=== PATIENT | female | born 1945 | race Caucasian/White ===

== ENCOUNTER 2020-04-30 14:43 | Inpatient (IN) | payer MEDICARE ==
[2020-04-30] MEDS ORDERED: Prochlorperazine Maleate 10 MG TAB PO PRN (17:50)
[2020-04-30] MEDS ORDERED: Diphenoxylate HCl/Atropine Tablet PO PRN (17:50)
[2020-04-30] MEDS ORDERED: traMADol HCl 50 MG TAB PO PRN ×2 (17:50)
[2020-04-30] MEDS: Ciprofloxacin 500 MG TAB PO SCH (20:45)
[2020-04-30] MEDS: Acetaminophen 500 MG TAB PO SCH (20:45)
[2020-04-30] MEDS: Ascorbic Acid 500 mg Chewable Tablet PO SCH (20:45)
[2020-04-30] MEDS: Loratadine 10 MG TAB PO SCH (20:46)
[2020-05-01] MEDS: Acetaminophen 500 MG TAB PO SCH ×5 (01:00→23:31)
[2020-05-01] MEDS: Ciprofloxacin 500 MG TAB PO SCH ×2 (05:47→19:21)
[2020-05-01 06:00] LABS: ALT (SGPT) 21 U/L (8-55); AST (SGOT) 26 U/L (5-34); Albumin 3.1 g/dL (3.4-4.8); Alkaline Phosphatase 97 U/L (40-110); Anion Gap 12 mmol/L (10-20); BUN (Urea Nitrogen) 14 mg/dL (9.8-20.1); Bilirubin, Total 0.8 mg/dL (0.2-1.2); Calc. Creatinine Clearance 69 mL/min (70-130); Calcium 8.4 mg/dL (7.8-10.44); Carbon Dioxide 24 mmol/L (23-31); Chloride 108 mmol/L (98-107); Estimated GFR-MDRD 68; Globulin 2.3 g/dL (2.4-3.5); Glucose 112 mg/dL (83-110); Potassium 3.9 mmol/L (3.5-5.1); Protein, Total 5.4 g/dL (6.0-8.3); Sodium 140 mmol/L (136-145)
[2020-05-01 06:36] LABS: Anisocytosis MODERATE=16-30 cells (100X) (0-5/hpf); Band 2 % (5-11); Basophilic Stippling SLIGHT = 1-2 cells (100X) (None Seen); Hemoglobin 8.6 g/dL (12.0-16.0); Lymphocytes 22 % (21-51); MDiff Complete? YES; Mean Corpuscular HGB CONC 30.2 g/dL (32.0-36.0); Mean Corpuscular Hemoglobin 29.8 pg (27.0-31.0); Mean Corpuscular Volume 98.6 fL (78.0-98.0); Mean Platelet Volume 8.4 fL (7.4-10.4); Metamyelocyte 1 % (0-0); Monocytes 26 % (0-10); Myelocyte 1 % (0-0); Neutrophil 48 % (42-75); Platelet Count 290 thou/uL (130-400); Platelet Morphology Comment Appears Adequate; Polychromasia MODERATE = 3-4 cells (100X) (0-2/hpf); RBC Distribution Width 22.4 % (11.5-14.5); Red Blood Cell (RBC) Count 2.87 mill/uL (4.20-5.40); White Blood Cell (WBC) Count 12.3 thou/uL (4.8-10.8)
[2020-05-01] MEDS: Rivaroxaban 10 MG TAB PO SCH (09:02)
[2020-05-01] MEDS: Calcium Carbonate 500 MG ChewTAB PO SCH (09:02)
[2020-05-01] MEDS: Multivitamin W/ Minerals 1 TAB PO SCH (09:03)
[2020-05-01] MEDS: Ascorbic Acid 500 mg Chewable Tablet PO SCH ×2 (09:05→20:35)
[2020-05-01] MEDS: Ferrous Sulfate 325 MG TAB PO SCH (09:05)
[2020-05-01] MEDS: Polyethylene Glycol 3350 17 GM Packet PO SCH (09:13)
[2020-05-01] MEDS: PATIENT'S HOME MEDICATION PO SCH ×2 (09:15→09:17)
[2020-05-01] MEDS ORDERED: Ciprofloxacin 500 MG TAB PO SCH ×2 (09:30→13:45)
[2020-05-01] MEDS: Loratadine 10 MG TAB PO SCH (20:35)
[2020-05-02] MEDS: Acetaminophen 500 MG TAB PO SCH ×3 (05:33→19:23)
[2020-05-02] MEDS: Ciprofloxacin 500 MG TAB PO SCH ×2 (05:34→20:28)
[2020-05-02] MEDS: Calcium Carbonate 500 MG ChewTAB PO SCH (08:20)
[2020-05-02] MEDS: Ascorbic Acid 500 mg Chewable Tablet PO SCH ×2 (08:20→20:28)
[2020-05-02] MEDS: Rivaroxaban 10 MG TAB PO SCH (08:20)
[2020-05-02] MEDS: Multivitamin W/ Minerals 1 TAB PO SCH (08:21)
[2020-05-02] MEDS: Ferrous Sulfate 325 MG TAB PO SCH (08:21)
[2020-05-02] MEDS ORDERED: Rivaroxaban 10 MG TAB ONE (08:25)
[2020-05-02] MEDS: PATIENT'S HOME MEDICATION PO SCH ×2 (08:29)
[2020-05-02] MEDS: Polyethylene Glycol 3350 17 GM Packet PO SCH (08:29)
[2020-05-02] MEDS: Loratadine 10 MG TAB PO SCH (20:28)
[2020-05-03] MEDS: Acetaminophen 500 MG TAB PO SCH ×4 (00:04→18:04)
[2020-05-03] MEDS: Ciprofloxacin 500 MG TAB PO SCH ×2 (05:55→21:01)
[2020-05-03] MEDS: Calcium Carbonate 500 MG ChewTAB PO SCH (08:23)
[2020-05-03] MEDS: Multivitamin W/ Minerals 1 TAB PO SCH (08:23)
[2020-05-03] MEDS: Rivaroxaban 10 MG TAB PO SCH (08:23)
[2020-05-03] MEDS: Polyethylene Glycol 3350 17 GM Packet PO SCH (08:23)
[2020-05-03] MEDS: Ferrous Sulfate 325 MG TAB PO SCH (08:24)
[2020-05-03] MEDS: Ascorbic Acid 500 mg Chewable Tablet PO SCH ×2 (08:24→21:01)
[2020-05-03] MEDS: PATIENT'S HOME MEDICATION PO SCH ×2 (08:26→08:27)
[2020-05-03] MEDS: Loratadine 10 MG TAB PO SCH (21:01)
[2020-05-04] MEDS: Acetaminophen 500 MG TAB PO SCH ×5 (00:20→23:21)
[2020-05-04] MEDS: Ciprofloxacin 500 MG TAB PO SCH ×2 (06:19→21:09)
[2020-05-04] MEDS ORDERED: Oxymetazoline HCl 0.05% (30 ML BOT) NS PRN (08:20)
[2020-05-04] MEDS: Ferrous Sulfate 325 MG TAB PO SCH (08:44)
[2020-05-04] MEDS: Rivaroxaban 10 MG TAB PO SCH (08:44)
[2020-05-04] MEDS: Multivitamin W/ Minerals 1 TAB PO SCH (08:45)
[2020-05-04] MEDS: Ascorbic Acid 500 mg Chewable Tablet PO SCH ×2 (08:45→21:09)
[2020-05-04] MEDS: Calcium Carbonate 500 MG ChewTAB PO SCH (08:45)
[2020-05-04] MEDS: PATIENT'S HOME MEDICATION PO SCH ×2 (08:46→08:47)
[2020-05-04] MEDS: Polyethylene Glycol 3350 17 GM Packet PO SCH (08:48)
[2020-05-04] MEDS: Loratadine 10 MG TAB PO SCH (21:09)
[2020-05-05 06:04] LABS: Hemoglobin 8.9 g/dL (12.0-16.0); Mean Corpuscular HGB CONC 29.5 g/dL (32.0-36.0); Mean Corpuscular Hemoglobin 29.7 pg (27.0-31.0); Mean Platelet Volume 7.7 fL (7.4-10.4); Platelet Count 464 thou/uL (130-400); RBC Distribution Width 22.1 % (11.5-14.5); Red Blood Cell (RBC) Count 2.98 mill/uL (4.20-5.40); White Blood Cell (WBC) Count 13.1 thou/uL (4.8-10.8)
[2020-05-05] MEDS: Ciprofloxacin 500 MG TAB PO SCH ×2 (06:11→20:16)
[2020-05-05] MEDS: Acetaminophen 500 MG TAB PO SCH ×4 (06:11→23:38)
[2020-05-05 06:18] LABS: Anisocytosis MODERATE=16-30 cells (100X) (0-5/hpf); Band 4 % (5-11); Eosinophils 2 % (0-10); Lymphocytes 26 % (21-51); Manual Diff?? YES; Monocytes 12 % (0-10); Neutrophil 56 % (42-75); Nucleated RBC 1 % (0)
[2020-05-05 06:19] LABS: Howell Jolly Bodies SLIGHT = 1-2 cells (100X) (None Seen); Macrocytosis SLIGHT = 6-15 cells (100X) (0-5/hpf); Polychromasia SLIGHT = 2-3 cells (100X) (0-2/hpf); Toxic Granulation SLIGHT
[2020-05-05 06:20] LABS: MDiff Complete? YES
[2020-05-05] MEDS: PATIENT'S HOME MEDICATION PO SCH ×2 (08:43)
[2020-05-05] MEDS: Ascorbic Acid 500 mg Chewable Tablet PO SCH ×2 (08:44→20:16)
[2020-05-05] MEDS: Rivaroxaban 10 MG TAB PO SCH (08:44)
[2020-05-05] MEDS: Polyethylene Glycol 3350 17 GM Packet PO SCH (08:44)
[2020-05-05] MEDS: Calcium Carbonate 500 MG ChewTAB PO SCH (08:44)
[2020-05-05] MEDS: Multivitamin W/ Minerals 1 TAB PO SCH (08:45)
[2020-05-05] MEDS: Ferrous Sulfate 325 MG TAB PO SCH (08:45)
[2020-05-05] MEDS: Loratadine 10 MG TAB PO SCH (20:16)
[2020-05-06] MEDS: Ciprofloxacin 500 MG TAB PO SCH ×2 (05:32→20:02)
[2020-05-06] MEDS: Acetaminophen 500 MG TAB PO SCH ×4 (05:32→23:29)
[2020-05-06] MEDS: PATIENT'S HOME MEDICATION PO SCH ×2 (08:35→08:36)
[2020-05-06] MEDS: Ferrous Sulfate 325 MG TAB PO SCH (08:36)
[2020-05-06] MEDS: Calcium Carbonate 500 MG ChewTAB PO SCH (08:36)
[2020-05-06] MEDS: Polyethylene Glycol 3350 17 GM Packet PO SCH (08:37)
[2020-05-06] MEDS: Ascorbic Acid 500 mg Chewable Tablet PO SCH ×2 (08:37→20:02)
[2020-05-06] MEDS: Rivaroxaban 10 MG TAB PO SCH (08:37)
[2020-05-06] MEDS: Multivitamin W/ Minerals 1 TAB PO SCH (08:37)
[2020-05-06] MEDS ORDERED: traMADol HCl 50 MG TAB PO PRN (10:56)
[2020-05-06] MEDS ORDERED: Prochlorperazine Maleate 5 MG TAB PO PRN (11:01)
[2020-05-06 13:02] VITALS: BMI 29.2
[2020-05-06] MEDS: Loperamide HCl 2 MG CAP PO PRN (14:56)
[2020-05-06] MEDS: Loratadine 10 MG TAB PO SCH (20:02)
[2020-05-07] MEDS: Acetaminophen 500 MG TAB PO SCH ×4 (05:45→23:36)
[2020-05-07] MEDS: Rivaroxaban 10 MG TAB PO SCH (08:40)
[2020-05-07] MEDS: Multivitamin W/ Minerals 1 TAB PO SCH (08:41)
[2020-05-07] MEDS: Ferrous Sulfate 325 MG TAB PO SCH (08:41)
[2020-05-07] MEDS: Ascorbic Acid 500 mg Chewable Tablet PO SCH ×2 (08:41→20:17)
[2020-05-07] MEDS: Calcium Carbonate 500 MG ChewTAB PO SCH (08:42)
[2020-05-07] MEDS: BIOTIN 5000 MCG PO SCH (08:45)
[2020-05-07] MEDS: MSM PO SCH (08:46)
[2020-05-07] MEDS: CHONDROITIN PO SCH (08:46)
[2020-05-07] MEDS: GLUCOSAMINE PO SCH (08:46)
[2020-05-07] MEDS: Polyethylene Glycol 3350 17 GM Packet PO SCH (08:49)
[2020-05-07] MEDS: Loperamide HCl 2 MG CAP PO PRN ×2 (12:22→13:23)
[2020-05-07] MEDS: Loratadine 10 MG TAB PO SCH (20:17)
[2020-05-08] MEDS: Acetaminophen 500 MG TAB PO SCH ×5 (06:04→23:28)
[2020-05-08] MEDS: Calcium Carbonate 500 MG ChewTAB PO SCH (08:46)
[2020-05-08] MEDS: Multivitamin W/ Minerals 1 TAB PO SCH (08:46)
[2020-05-08] MEDS: Rivaroxaban 10 MG TAB PO SCH (08:46)
[2020-05-08] MEDS: Ascorbic Acid 500 mg Chewable Tablet PO SCH ×2 (08:47→21:13)
[2020-05-08] MEDS: Ferrous Sulfate 325 MG TAB PO SCH (08:47)
[2020-05-08] MEDS: BIOTIN 5000 MCG PO SCH (08:52)
[2020-05-08] MEDS: GLUCOSAMINE PO SCH (08:53)
[2020-05-08] MEDS: CHONDROITIN PO SCH (08:53)
[2020-05-08] MEDS: MSM PO SCH (08:53)
[2020-05-08] MEDS: Polyethylene Glycol 3350 17 GM Packet PO SCH (08:54)
[2020-05-08] MEDS: Loperamide HCl 2 MG CAP PO PRN ×2 (10:00→10:53)
[2020-05-08] MEDS: Loratadine 10 MG TAB PO SCH (21:14)
[2020-05-09] MEDS: Acetaminophen 500 MG TAB PO SCH ×3 (05:39→18:10)
[2020-05-09] MEDS: Ferrous Sulfate 325 MG TAB PO SCH (08:46)
[2020-05-09] MEDS: Rivaroxaban 10 MG TAB PO SCH (08:46)
[2020-05-09] MEDS: Ascorbic Acid 500 mg Chewable Tablet PO SCH ×2 (08:47→20:27)
[2020-05-09] MEDS: Calcium Carbonate 500 MG ChewTAB PO SCH (08:47)
[2020-05-09] MEDS: Multivitamin W/ Minerals 1 TAB PO SCH (08:47)
[2020-05-09] MEDS: BIOTIN 5000 MCG PO SCH (08:47)
[2020-05-09] MEDS: GLUCOSAMINE PO SCH (08:48)
[2020-05-09] MEDS: CHONDROITIN PO SCH (08:48)
[2020-05-09] MEDS: MSM PO SCH (08:48)
[2020-05-09] MEDS: Polyethylene Glycol 3350 17 GM Packet PO SCH (08:49)
[2020-05-09] MEDS: Loratadine 10 MG TAB PO SCH (20:27)
[2020-05-10 05:50] LABS: Hemoglobin 9.7 g/dL (12.0-16.0); Platelet Count 556 thou/uL (130-400)
[2020-05-10] MEDS: Acetaminophen 500 MG TAB PO PRN ×2 (05:58→22:35)
[2020-05-10] MEDS: GLUCOSAMINE PO SCH (08:45)
[2020-05-10] MEDS: BIOTIN 5000 MCG PO SCH (08:45)
[2020-05-10] MEDS: MSM PO SCH (08:45)
[2020-05-10] MEDS: CHONDROITIN PO SCH (08:45)
[2020-05-10] MEDS: Ferrous Sulfate 325 MG TAB PO SCH (08:46)
[2020-05-10] MEDS: Rivaroxaban 10 MG TAB PO SCH (08:46)
[2020-05-10] MEDS: Multivitamin W/ Minerals 1 TAB PO SCH (08:46)
[2020-05-10] MEDS: Ascorbic Acid 500 mg Chewable Tablet PO SCH ×2 (08:46→20:42)
[2020-05-10] MEDS: Calcium Carbonate 500 MG ChewTAB PO SCH (08:46)
[2020-05-10] MEDS: Polyethylene Glycol 3350 17 GM Packet PO SCH (08:47)
[2020-05-10] MEDS: Loperamide HCl 2 MG CAP PO PRN (11:57)
[2020-05-10] MEDS: Loratadine 10 MG TAB PO SCH (20:42)
[2020-05-11] MEDS: Ascorbic Acid 500 mg Chewable Tablet PO SCH ×2 (08:30→20:53)
[2020-05-11] MEDS: Rivaroxaban 10 MG TAB PO SCH (08:30)
[2020-05-11] MEDS: CHONDROITIN PO SCH (08:31)
[2020-05-11] MEDS: BIOTIN 5000 MCG PO SCH (08:31)
[2020-05-11] MEDS: GLUCOSAMINE PO SCH (08:31)
[2020-05-11] MEDS: Ferrous Sulfate 325 MG TAB PO SCH (08:31)
[2020-05-11] MEDS: MSM PO SCH (08:31)
[2020-05-11] MEDS: Calcium Carbonate 500 MG ChewTAB PO SCH (08:31)
[2020-05-11] MEDS: Multivitamin W/ Minerals 1 TAB PO SCH (08:31)
[2020-05-11] MEDS: Polyethylene Glycol 3350 17 GM Packet PO SCH (08:32)
[2020-05-11] MEDS: Loperamide HCl 2 MG CAP PO PRN ×2 (09:39→10:58)
[2020-05-11] MEDS: Loratadine 10 MG TAB PO SCH (20:53)
[2020-05-11] MEDS: Acetaminophen 500 MG TAB PO PRN (20:53)
[2020-05-12] MEDS: BIOTIN 5000 MCG PO SCH (08:36)
[2020-05-12] MEDS: Multivitamin W/ Minerals 1 TAB PO SCH (08:36)
[2020-05-12] MEDS: Rivaroxaban 10 MG TAB PO SCH (08:36)
[2020-05-12] MEDS: Ascorbic Acid 500 mg Chewable Tablet PO SCH ×2 (08:36→20:21)
[2020-05-12] MEDS: Ferrous Sulfate 325 MG TAB PO SCH (08:36)
[2020-05-12] MEDS: Calcium Carbonate 500 MG ChewTAB PO SCH (08:36)
[2020-05-12] MEDS: CHONDROITIN PO SCH (08:37)
[2020-05-12] MEDS: Polyethylene Glycol 3350 17 GM Packet PO SCH (08:37)
[2020-05-12] MEDS: MSM PO SCH (08:37)
[2020-05-12] MEDS: GLUCOSAMINE PO SCH (08:37)
[2020-05-12] MEDS: Loratadine 10 MG TAB PO SCH (20:21)
[2020-05-12] MEDS: Acetaminophen 500 MG TAB PO PRN (20:24)
[2020-05-13] MEDS: Loperamide HCl 2 MG CAP PO PRN (07:41)
[2020-05-13] MEDS: Rivaroxaban 10 MG TAB PO SCH (08:18)
[2020-05-13] MEDS: Ascorbic Acid 500 mg Chewable Tablet PO SCH (08:18)
[2020-05-13] MEDS: Acetaminophen 500 MG TAB PO PRN (08:18)
[2020-05-13] MEDS: Calcium Carbonate 500 MG ChewTAB PO SCH (08:18)
[2020-05-13] MEDS: Ferrous Sulfate 325 MG TAB PO SCH (08:18)
[2020-05-13] MEDS: GLUCOSAMINE PO SCH (08:19)
[2020-05-13] MEDS: CHONDROITIN PO SCH (08:19)
[2020-05-13] MEDS: Multivitamin W/ Minerals 1 TAB PO SCH (08:19)
[2020-05-13] MEDS: MSM PO SCH (08:19)
[2020-05-13] MEDS: BIOTIN 5000 MCG PO SCH (08:19)
[2020-05-13] MEDS: Polyethylene Glycol 3350 17 GM Packet PO SCH (08:20)
[2020-05-13 09:40] VITALS: BP 127/60; TEMP 98.2
--- NOTE | 2020-05-13 18:03 | DIS ---
DATE OF ADMISSION: 04/30/2020 DATE OF DISCHARGE: 05/13/2020 ADMISSION DIAGNOSES: Status post fall and repair of right intertrochanteric femur fracture and right open radius and ulna fracture, history of right upper extremity deep vein thrombosis, history of appendiceal cancer with metastasis, acute blood loss anemia, and urinary tract infection. PROCEDURES: None. HOSPITAL COURSE: This is a 74-year-old female who sustained a fall while walking her dog resulting in a right open radius and ulnar fracture and a right intertrochanteric femur fracture for which she was hospitalized at [facility] in [place] from 04/24/2020 to 04/30/2020. Her fractures were surgically repaired via Dr. Jordan on 04/24/2020, and she proceeded to participate with physical therapy and occupational therapy thereafter. She was found to have a urinary tract infection and started on oral ciprofloxacin. The patient then transitioned to our facility to participate with further therapy and complete her course of oral antibiotics. While here, she did successfully work with Physical Therapy and Occupational Therapy and has improved her functional status accordingly. She did complete her course of oral ciprofloxacin. She has had no acute setbacks during her stay while here. She has been set up with [facility] for continuity of therapy services and further fci. Proper equipment has been arranged including a platform rolling walker to aid home ambulation. The patient's daughter has moved in with her in [place] to further facilitate activities of daily living. Of note, the patient does have a history of appendiceal cancer with metastasis for which she has been on chemotherapy. However, this has been withheld throughout her hospitalizations, and she will follow up with her oncologist, Dr. Genao, next week. The patient is pleased with her progress and agreeable to discharge home at this time with further arranged medical care. DISPOSITION: The patient will discharge home where her daughter has moved in with her. She will have [facility] for further fci and therapy. She is to follow up with Orthopedic Surgery, Dr. Jordan, today and she is to follow up with Dr. Genao next week. DISCHARGE MEDICATIONS: The patient has had no medication changes and will continue her usual regimen of, 1. Tylenol. 2. Vitamin C. 3. Calcium carbonate. 4. Vitamin D. 5. Lomotil. 6. Ferrous sulfate. 7. Glucosamine chondroitin complex. 8. Imodium. 9. Claritin. 10. Multivitamin. 11. Protonix. 12. MiraLAX. 13. Compazine. 14. Xarelto. 15. Tramadol. Job ID: [id number] [facility]
== END 2020-05-13 09:40 | disposition home or self-care (01) | DRG 560 ==
LOC: BURMED 17:05
PROVIDERS: ADMIT Family Medicine; ATTEND Family Medicine
DX: Z47.89 Encounter for other orthopedic aftercare (principal); D62 Acute posthemorrhagic anemia; N39.0 Urinary tract infection, site not specified; S72.141D Displaced intertrochanteric fracture of right femur, subsequent encounter for closed fracture with routine healing; Z91.81 History of falling; Z86.718 Personal history of other venous thrombosis and embolism; Z79.01 Long term (current) use of anticoagulants; Z85.068 Personal history of other malignant neoplasm of small intestine
CPT/HCPCS: 36415; 80053; 85014; 85018; 85025; 85049